=== PATIENT | male | born 1955 | race Caucasian/White ===

== ENCOUNTER 2018-01-26 07:15 | Day surgery (SDC) | payer MEDICARE, BC ==
[~2018-01-26 07:15] MED LIST: Lactated Ringers 1,000 ML IV SCH
[2018-01-26] MEDS ORDERED: fentaNYL 100 MCG/2 ML SDV ONE (08:16)
[2018-01-26] MEDS ORDERED: Midazolam 1 MG/ML 2 ML SDV ONE (08:16)
[2018-01-26] MEDS ORDERED: Propofol 200 MG/20 ML SDV ONE (08:17)
[2018-01-26 09:48] VITALS: BP 122/81
--- NOTE | 2018-01-26 13:05 | OR ---
DATE OF PROCEDURE: 01/26/2018 PREOPERATIVE DIAGNOSIS: History of colon polyps. Mother with colon cancer. POSTOPERATIVE DIAGNOSES: 1. History of colon polyps. Mother with colon cancer. 2. Small right colon polyp. PROCEDURE PERFORMED: Colonoscopy to the cecum with biopsy resection of small right colon polyp. ANESTHESIA: IV anesthesia with monitored anesthesia care. INDICATIONS: This 63-year-old white male referred for a colonoscopy because of a history of colon polyps. His last colonoscopic exam was done he says 3 years ago. I counseled him for the procedure, including risks and alternatives, and gave his informed consent to proceed. DESCRIPTION OF PROCEDURE: The patient was placed in the left lateral decubitus position. IV anesthesia was administered by the Anesthesia Service. Time-out was held. A rectal exam was performed, which was unremarkable. The flexible video Olympus colonoscope was introduced through his anus, up his rectum, and out his colon, all the way to the cecum. Once the cecum was reached, the scope was slowly withdrawn, examining the mucosa throughout. In the right colon, we saw small polyp, which was removed with a few bites of the biopsy forceps. The scope was withdrawn further with no other lesions noted. The scope was retroflexed in the rectum with the distal rectum appearing unremarkable. The scope was straightened and removed. He tolerated the procedure well. Lefty Jacinto MD /[id number]
== END 2018-01-26 09:50 | disposition home or self-care (01) ==
LOC: JP.SDS 07:15
PROVIDERS: ATTEND Surgery
DX: Z12.11 Encounter for screening for malignant neoplasm of colon (principal); D12.2 Benign neoplasm of ascending colon; I10 Essential (primary) hypertension; E78.5 Hyperlipidemia, unspecified; I73.9 Peripheral vascular disease, unspecified; F41.9 Anxiety disorder, unspecified; F32.9 Major depressive disorder, single episode, unspecified; Z86.010 Personal history of colon polyps; Z80.0 Family history of malignant neoplasm of digestive organs
CPT/HCPCS: 88305; J2250; J2704; J3010; J7120

== ENCOUNTER 2021-03-08 08:20 | Day surgery (SDC) | payer MEDICARE, BC ==
[2021-03-08] MEDS ORDERED: Sodium Chloride 0.9% 1,000 ML IV SCH (08:45)
[2021-03-08] MEDS ORDERED: fentaNYL 100 MCG/2 ML SDV ONE (09:55)
[2021-03-08] MEDS ORDERED: Propofol 200 MG/20 ML SDV ONE (09:55)
[2021-03-08] MEDS ORDERED: Midazolam 1 MG/ML 2 ML SDV ONE (09:55)
[2021-03-08 11:27] VITALS: BP 132/88; PULSE 68
--- NOTE | 2021-03-09 09:04 | OR ---
DATE OF PROCEDURE: 03/08/2021 SURGEON: Tam Ayoub MD PROCEDURE: Colonoscopy. FINDINGS: 1. Ascending colon polyp, approximately 5 mm, completely removed using cold biopsy forceps. 2. Transverse colon polyp, approximately 8 mm, completely removed using hot snare wire device. 3. Descending colon polyp, approximately 5 mm, completely removed using cold biopsy forceps. COMPLICATIONS: None. FLUTE POLISHER: None. ANESTHESIA: MAC. PREOPERATIVE DIAGNOSIS: Screening colonoscopy and family history of colorectal cancer. POSTOPERATIVE DIAGNOSIS: Screening colonoscopy and family history of colorectal cancer. RISKS: Risks, benefits, alternatives, and limitations including, but limited to, infection, bleeding, perforation, false positives, false negatives were explained to the patient and they wished to proceed. PROCEDURE IN DETAIL: Patient was placed in left lateral decubitus position. Digital rectal exam was performed without abnormality. Scope was introduced and advanced atraumatically to the ileocecal valve. A photo was taken of this and of the appendiceal orifice. The scope was brought back to the ascending, transverse, descending colon, and retroflexed. No evidence of old or new blood. No masses. The patient had a few scattered diverticula. No colitis. No abnormalities on retroflexion. The aforementioned polyps were identified and completely removed. The prep was acceptable, approximately 90% luminal surface could be seen. Greater than 8 minutes was spent removing the scope. The patient tolerated procedure well. Tam Ayoub MD /[id number]
== END 2021-03-08 11:44 | disposition home or self-care (01) ==
LOC: JP.SDS 08:20
PROVIDERS: ATTEND Surgery
DX: Z12.11 Encounter for screening for malignant neoplasm of colon (principal); D12.2 Benign neoplasm of ascending colon; D12.3 Benign neoplasm of transverse colon; D12.4 Benign neoplasm of descending colon; K57.30 Diverticulosis of large intestine without perforation or abscess without bleeding; Z80.0 Family history of malignant neoplasm of digestive organs
CPT/HCPCS: 45380; 45385; J2250; J2704; J3010; 88305

== ENCOUNTER 2024-05-04 06:16 | Day surgery (SDC) | payer MEDICARE, BC ==
[2024-05-04] MEDS: Sodium Chloride 0.9% 1,000 ML IV SCH (06:38)
[2024-05-04] MEDS ORDERED: fentaNYL 50 MCG/ML SDV ONE (06:48)
[2024-05-04] MEDS ORDERED: Propofol 200 MG/20 ML SDV ONE (06:48)
[2024-05-04 08:45] VITALS: BP 141/90; PULSE 63
== END 2024-05-04 08:51 | disposition home or self-care (01) ==
LOC: JP.SDS 06:16
PROVIDERS: ATTEND Surgery
DX: Z12.11 Encounter for screening for malignant neoplasm of colon (principal); D12.2 Benign neoplasm of ascending colon; Z80.0 Family history of malignant neoplasm of digestive organs
CPT/HCPCS: 45380; 88305; J2704; J3010; J7030